=== PATIENT | female | born 1990 ===

== ENCOUNTER → 2023-07-26 | Outpatient (CLI) | payer BC ==
[2023-07-26 19:35] LABS: BASOPHILS ABSOLUTE AUTO 0.05 K/mm3 (0.00-0.23); BASOPHILS PERCENT AUTO 1 % (0-2); EOSINOPHILS ABSOLUTE AUTO 0.08 K/mm3 (0.00-0.68); EOSINOPHILS PERCENT AUTO 1 % (0-6); Hematocrit 39.4 % (33.0-51.0); Hemoglobin 13.7 g/dL (11.5-16.0); IMMATURE GRAN ABSOLUTE AUTO 0.03 K/mm3 (0.00-0.10); IMMATURE GRAN PERCENT AUTO 1 % (0-1); LYMPHOCYTES ABSOLUTE AUTO 1.49 K/mm3 (0.84-5.20); LYMPHOCYTES PERCENT AUTO 23 % (21-46); MONOCYTES ABSOLUTE AUTO 0.64 K/mm3 (0.16-1.47); MONOCYTES PERCENT AUTO 10 % (4-13); Mean Corpuscular HGB 33.5 pg (26.0-34.0); Mean Corpuscular HGB Conc 34.8 g/dL (31.5-36.5); Mean Corpuscular Volume 96 fL (80-100); Mean Platelet Volume 11.4 fL (9.1-12.4); NEUTROPHILS ABSOLUTE AUTO 4.32 K/mm3 (1.96-9.15); NEUTROPHILS PERCENT AUTO 65 % (41-73); Platelet Count 277 K/mm3 (150-400); RDW Coefficient Variation 12.3 % (11.7-14.2); RDW Standard Deviation 43.1 fL (35.1-46.3); Red Blood Cell Count 4.09 M/mm3 (3.80-5.20); White Blood Cell Count 6.61 K/mm3 (4.00-11.30)
[2023-07-29 15:33] LABS: HEPATITIS C AB CIA INTERP Negative (Negative); HEPATITIS C ANTIBODY CIA INDEX 0.08 IV
[2023-07-29 15:41] LABS: HEPATITIS B SURFACE ANTIGEN Positive (Negative)
[2023-07-30 10:22] LABS: HIV 1,2 COMBO ANTIGEN/ANTIBODY Negative (Negative)
== END ==
LOC: LAB 18:59 → LAB SHORT 18:59
PROVIDERS: Family Medicine
DX: Z34.91 Encounter for supervision of normal pregnancy, unspecified, first trimester (principal)
CPT/HCPCS: 84443; 86803; 87340; 87389

== ENCOUNTER → 2023-08-08 | Outpatient (CLI) | payer BC ==
[2023-08-08 16:02] LABS: Albumin, Blood 3.5 g/dL (3.4-5.0); Albumin/Globulin Ratio 0.9 (0.8-1.8); Bilirubin, Total 0.4 mg/dL (0.1-1.0); Bun/Creatinine Ratio 11.9 (12.0-20.0); Calcium, Blood 8.7 mg/dL (8.5-10.1); Creatinine, Blood 0.42 mg/dL (0.40-1.00); Globulin, Blood 3.7 g/dL (2.2-4.0); Potassium, Blood 3.5 mmol/L (3.5-5.5); Total Protein, Blood 7.2 g/dL (6.4-8.2)
[2023-08-11 09:54] LABS: HEPATITIS BE ANTIBODY Negative (Negative)
[2023-08-11 11:29] LABS: HEPATITIS BE ANTIGEN Positive (Negative)
[2023-08-11 15:08] LABS: HBV QNT BY NAAT INTERP Detected (Not Detected)
[2023-08-11 19:37] LABS: APTIMA MEDIA TYPE Urine; C. TRACHOMATIS BY TMA Negative (Negative); N. GONORRHOEAE BY TMA Negative (Negative); SPECIMEN SOURCE Urine
== END ==
LOC: LAB 13:55 → LAB SHORT 13:55
PROVIDERS: Family Medicine
DX: B19.10 Unspecified viral hepatitis B without hepatic coma (principal); Z34.81 Encounter for supervision of other normal pregnancy, first trimester
CPT/HCPCS: 80053; 86707; 87350; 87491; 87517; 87591

== ENCOUNTER → 2023-09-02 | Outpatient (CLI) | payer BC, OTHER ==
[2023-09-02 13:18] LABS: Source, Urine Clean Catch
[2023-09-02 15:03] LABS: Appearance, Urine Cloudy (Clear); Bilirubin, Urine Neg (Neg); Blood, Urine Neg (Neg); Color, Urine Yellow (P-Yellow); Glucose Qualitative, Urine Neg (Neg); Ketones, Urine Neg (Neg); Leukocyte Esterase, Urine Neg (Neg); Nitrite, Urine Neg (Neg); Protein, Urine 2+ (Neg); Specific Gravity, Urine 1.015 (1.003-1.022); Urobilinogen, Urine NORM (Normal)
[2023-09-02 15:20] LABS: Amorphous Mod (0-Heavy); Mucus Light (0-Heavy); Red Blood Cells, Urine 0-2 /hpf (0-2); Squamous Epithelial Cells Mod /hpf (Few); White Blood Cells, Urine 0-2 /hpf (0-5)
[2023-09-02 15:24] LABS: Bacteria Mod /hpf
== END ==
LOC: LAB 13:17 → LAB SHORT 13:17
PROVIDERS: Family Medicine
DX: Z34.81 Encounter for supervision of other normal pregnancy, first trimester (principal)
CPT/HCPCS: 81001; 87086

== ENCOUNTER → 2023-11-20 | Outpatient (CLI) | payer BC ==
[2023-11-20 16:12] LABS: BASOPHILS ABSOLUTE AUTO 0.04 K/mm3 (0.00-0.23); BASOPHILS PERCENT AUTO 1 % (0-2); EOSINOPHILS ABSOLUTE AUTO 0.11 K/mm3 (0.00-0.68); EOSINOPHILS PERCENT AUTO 2 % (0-6); Hematocrit 33.5 % (33.0-51.0); IMMATURE GRAN ABSOLUTE AUTO 0.08 K/mm3 (0.00-0.10); IMMATURE GRAN PERCENT AUTO 1 % (0-1); LYMPHOCYTES ABSOLUTE AUTO 1.15 K/mm3 (0.84-5.20); LYMPHOCYTES PERCENT AUTO 20 % (21-46); MONOCYTES ABSOLUTE AUTO 0.53 K/mm3 (0.16-1.47); MONOCYTES PERCENT AUTO 9 % (4-13); Mean Corpuscular HGB 33.7 pg (26.0-34.0); Mean Corpuscular HGB Conc 32.8 g/dL (31.5-36.5); Mean Corpuscular Volume 103 fL (80-100); Mean Platelet Volume 10.6 fL (9.1-12.4); NEUTROPHILS PERCENT AUTO 67 % (41-73); Platelet Count 224 K/mm3 (150-400); RDW Coefficient Variation 13.5 % (11.7-14.2); RDW Standard Deviation 51.2 fL (35.1-46.3); Red Blood Cell Count 3.26 M/mm3 (3.80-5.20); White Blood Cell Count 5.71 K/mm3 (4.00-11.30)
[2023-11-22 00:38] LABS: HBV QNT BY NAAT (LOG IU/ML) 5.64; HBV QNT BY NAAT INTERP Detected (Not Detected)
[2023-11-22 08:37] LABS: HEPATITIS BE ANTIGEN Positive (Negative)
[2023-11-22 08:38] LABS: HEPATITIS BE ANTIBODY Negative (Negative)
== END | disposition home or self-care (01) ==
LOC: LAB SHORT 14:41 → LAB 14:41
PROVIDERS: Family Medicine
DX: O98.512 Other viral diseases complicating pregnancy, second trimester (principal); B19.10 Unspecified viral hepatitis B without hepatic coma
CPT/HCPCS: 82950; 85025; 86707; 87350; 87517

== ENCOUNTER → 2024-01-30 | Outpatient (CLI) | payer BC ==
[2024-02-01 01:37] LABS: HBV QNT BY NAAT (IU/ML) 557 IU/mL; HBV QNT BY NAAT (LOG IU/ML) 2.75; HBV QNT BY NAAT INTERP Detected (Not Detected)
== END | disposition home or self-care (01) ==
LOC: LAB SHORT 10:00 → LAB 10:00
PROVIDERS: Family Medicine
DX: B19.10 Unspecified viral hepatitis B without hepatic coma (principal)
CPT/HCPCS: 87517

== ENCOUNTER 2024-02-10 18:59 | Inpatient (IN) | payer BC ==
[~2024-02-10] VITALS: Ht 160 cm; Wt 75.0 kg
[2024-02-10 19:18] VITALS: BP 119/63
[2024-02-10] MEDS ORDERED: Lactated Ringer's 1,000 ML IV PRN ×3 (20:25)
[2024-02-10] MEDS ORDERED: OXYTOCIN/RINGER'S LACTATE 500 ML IV SCH (20:25)
[2024-02-10] MEDS ORDERED: FentaNYL 2mcg/ml-Bup 0.1% Epd 250 ML EPI PRN (20:25)
[2024-02-10] MEDS ORDERED: ePHEDrine Sulfate 50 MG/ML 1ML Injection XX PRN (20:25)
[2024-02-10] MEDS ORDERED: Oxytocin 10 Unit / ML Vial IM PRN (20:30)
[2024-02-10] MEDS ORDERED: Castor Oil 59.146 ML BTL TOP PRN (20:30)
[2024-02-10] MEDS ORDERED: Lidocaine HCl 1% 30 ML SDV XX PRN (20:30)
[2024-02-10] MEDS ORDERED: Bupivacaine HCl 2.5 MG/ML 10ML P/F Injection XX PRN (20:30)
[2024-02-10] MEDS ORDERED: Misoprostol 200 MCG Tab PR PRN (20:30)
[2024-02-10] MEDS ORDERED: Bupivacaine 0.5% HCl 5 MG/ML 30MLVIAL XX PRN (20:30)
[2024-02-10] MEDS ORDERED: Methylergonovine Maleate 0.2MG / ML 1ML Amp IM PRN (20:30)
[2024-02-10 20:42] LABS: BASOPHILS ABSOLUTE AUTO 0.03 K/mm3 (0.00-0.23); BASOPHILS PERCENT AUTO 1 % (0-2); EOSINOPHILS ABSOLUTE AUTO 0.09 K/mm3 (0.00-0.68); EOSINOPHILS PERCENT AUTO 2 % (0-6); Hematocrit 34.5 % (33.0-51.0); Hemoglobin 11.9 g/dL (11.5-16.0); IMMATURE GRAN ABSOLUTE AUTO 0.02 K/mm3 (0.00-0.10); IMMATURE GRAN PERCENT AUTO 0 % (0-1); LYMPHOCYTES ABSOLUTE AUTO 1.13 K/mm3 (0.84-5.20); LYMPHOCYTES PERCENT AUTO 21 % (21-46); MONOCYTES ABSOLUTE AUTO 0.59 K/mm3 (0.16-1.47); MONOCYTES PERCENT AUTO 11 % (4-13); Mean Corpuscular HGB 33.6 pg (26.0-34.0); Mean Corpuscular HGB Conc 34.5 g/dL (31.5-36.5); Mean Corpuscular Volume 98 fL (80-100); Mean Platelet Volume 11.4 fL (9.1-12.4); NEUTROPHILS ABSOLUTE AUTO 3.66 K/mm3 (1.96-9.15); NEUTROPHILS PERCENT AUTO 66 % (41-73); Platelet Count 193 K/mm3 (150-400); RDW Coefficient Variation 13.2 % (11.7-14.2); RDW Standard Deviation 47.3 fL (35.1-46.3); Red Blood Cell Count 3.54 M/mm3 (3.80-5.20); White Blood Cell Count 5.52 K/mm3 (4.00-11.30)
[2024-02-10] MEDS ORDERED: FentaNYL Citrate 50 MCG/ML 2 ML Injection IV PRN (21:10)
[2024-02-10] MEDS ORDERED: Ondansetron HCl 2 MG / ML 2ML Vial IV PRN (21:15)
[2024-02-10 21:28] VITALS: BP 126/70
[2024-02-10] MEDS ORDERED: PRENATAL TABLE1 EAC2 PO (21:56)
[2024-02-10] MEDS ORDERED: TENO300 PO (21:57)
[2024-02-10 23:17] VITALS: BP 123/67
[2024-02-10 23:32] VITALS: BP 129/60
[2024-02-10 23:47] VITALS: BP 127/62
[2024-02-11] VITALS (14 sets, daily range): BP systolic 107–120; BP diastolic 55–64
[2024-02-11] MEDS ORDERED: Witch Hazel/Glycerin PADS TOP PRN (00:50)
[2024-02-11] MEDS ORDERED: Diphth,Pertuss(Acell),Tet Vac 0.5 ML VIAL IM ONE (00:50)
[2024-02-11] MEDS ORDERED: Docusate Sodium 100 MG Cap PO PRN (00:50)
[2024-02-11] MEDS ORDERED: Lanolin Cream TOP PRN (00:55)
[2024-02-11] MEDS ORDERED: LR Oxytocin 20 Units 1,000 ML IV SCH (00:55)
[2024-02-11] MEDS ORDERED: Methylergonovine Maleate 0.2MG / ML 1ML Amp IM PRN (00:55)
[2024-02-11] MEDS ORDERED: Misoprostol 200 MCG Tab PO PRN (00:55)
[2024-02-11] MEDS ORDERED: Ibuprofen 400 MG Tab PO PRN (00:55)
[2024-02-11] MEDS ORDERED: Lactated Ringer's 1,000 ML IV SCH (00:55)
[2024-02-11] MEDS ORDERED: Acetaminophen 325 MG TABLET PO PRN (01:00)
[2024-02-11] MEDS ORDERED: Ketorolac Tromethamine 30mg Vial IV PRN (01:00)
[2024-02-11] MEDS ORDERED: OxyCODONE 5 mg/Acetamin 325 mg TABLET PO PRN (01:00)
[2024-02-11] MEDS ORDERED: Ketorolac Tromethamine 30mg Vial IV ONE (01:00)
[2024-02-11] MEDS ORDERED: Benzocaine Topical Anesthetic Spray 60GM TOP PRN (01:00)
[2024-02-11] MEDS ORDERED: Prenatal Vit/FE Fumarate/FA 1 Tab PO SCH (09:00)
[2024-02-11 10:15] LABS: Hematocrit 32.4 % (33.0-51.0); Hemoglobin 11.4 g/dL (11.5-16.0); Mean Corpuscular HGB Conc 35.2 g/dL (31.5-36.5); Mean Corpuscular Volume 97 fL (80-100); Mean Platelet Volume 11.2 fL (9.1-12.4); Platelet Count 172 K/mm3 (150-400); RDW Coefficient Variation 13.2 % (11.7-14.2); Red Blood Cell Count 3.35 M/mm3 (3.80-5.20); White Blood Cell Count 8.28 K/mm3 (4.00-11.30)
[2024-02-11 10:30] LABS: Glucose, Blood 118 mg/dL (70-99)
--- NOTE | 2024-02-11 18:52 | NUR ---
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 [place] [employer] ID number is [id number].
[2024-02-12 00:35] VITALS: BP 116/58
[2024-02-12 04:37] VITALS: BP 108/57
[2024-02-12 08:58] VITALS: BP 106/58
[2024-02-12 11:18] VITALS: BP 122/56
--- NOTE | 2024-02-12 17:12 | NUR ---
DISCHARGE TEACHING COMPLETED, PT VERBALIZED RN READING OVER DC INSTRUCTION AND UNDERSTANDING THEM, PT ASKING APPROPRIATE QUESTIONS, HAS HER PP F/U APPOINT WITH OFFICE SCHEDULED FOR MAR 23 AND WILL RETURN TO [facility] 02/13 AT 200PM, PT DENIES NEED FOR PAIN MEDICATION. PATIENT NOW DISCHARGED TO BOARDER STATUS.
== END 2024-02-12 17:00 | disposition home or self-care (01) | DRG 806 ==
LOC: OBS 18:59 → BC 18:59 → OBS 19:46 → BC 19:47
PROVIDERS: ADMIT Advanced Practice Midwife
PROC: 10E0XZZ Delivery of Products of Conception, External Approach (ICD-10-PCS; principal; 2024-02-10)
PROC: 0KQM0ZZ Repair Perineum Muscle, Open Approach (ICD-10-PCS; 2024-02-10)
PROC: 10907ZC Drainage of Amniotic Fluid, Therapeutic from Products of Conception, Via Natural or Artificial Opening (ICD-10-PCS; 2024-02-10)
DX: O24.420 Gestational diabetes mellitus in childbirth, diet controlled (principal); B19.10 Unspecified viral hepatitis B without hepatic coma; Z37.0 Single live birth; O98.42 Viral hepatitis complicating childbirth; Z3A.39 39 weeks gestation of pregnancy; O24.430 Gestational diabetes mellitus in the puerperium, diet controlled; O70.1 Second degree perineal laceration during delivery; O77.0 Labor and delivery complicated by meconium in amniotic fluid
CPT/HCPCS: 36415; 59025; 82947; 85025; 85027; 86850; 86900; 86901; A9270; J2590; J3010

== ENCOUNTER → 2024-04-22 | Outpatient (CLI) | payer BC ==
[~2024-04-22] MED LIST: PRENATAL TABLE1 EAC2 PO; TENO300 PO
[2024-04-24 15:23] LABS: HBV QNT BY NAAT (IU/ML) 658 IU/mL; HBV QNT BY NAAT (LOG IU/ML) 2.82; HBV QNT BY NAAT INTERP Detected (Not Detected)
== END | disposition home or self-care (01) ==
LOC: LAB 13:54 → LAB SHORT 13:54
PROVIDERS: Family Medicine
DX: B18.1 Chronic viral hepatitis B without delta-agent (principal)
CPT/HCPCS: 36415